=== PATIENT | female | born 1980 | race Caucasian/White ===

== ENCOUNTER 2019-02-27 10:41 | Outpatient (REF) | payer SELFPAY ==
[2019-02-27 21:29] LABS: Anion Gap 10.6 mmol/L (3-11); BUN 10 mg/dL (7-18); CO2 24.4 mmol/L (21.0-32.0); CREATININE 0.75 mg/dL (0.55-1.02); Calculated LDL 199 mg/dL; Chloride 105 mmol/L (98-107); Cholesterol 274 mg/dL (50-200); Glucose 99 mg/dL (70-100); HDL Cholesterol 36 mg/dL (40-60); Potassium 4.2 mmol/L (3.5-5.1); Sodium 140 mmol/L (136-145); TSH (W/Ref FT4) 1.52 uIU/mL (0.358-3.74); Triglyceride 197 mg/dL (30-150)
== END 2019-02-27 11:01 ==
LOC: NCHCN 10:41
PROVIDERS: PCP Nurse Practitioner Family; Visit Provider Nurse Practitioner Family
DX: Z00.00 Encounter for general adult medical examination without abnormal findings (principal); Z13.29 Encounter for screening for other suspected endocrine disorder; Z13.228 Encounter for screening for other metabolic disorders; Z13.220 Encounter for screening for lipoid disorders
CPT/HCPCS: 80048; 80061; 83721; 84443

== ENCOUNTER 2020-10-06 13:34 | Outpatient (REF) | payer SELFPAY ==
--- NOTE | 2020-10-06 11:20 | PAPFT_PTH ---
PATIENT: LORETO BELLO LOC: [facility] U#:[id number] AGE/SX: 39/F ROOM: RE10/06/[address]: Yanna Hinton : 1980 BED: DIS: 10/06/2020 SPEC #: [id number] RECD: 10/06/20 15:35 STATUS: NII REUriel #: [id number] KAROL: 10/06/20 11:[address]: Yanna Hinton DEPT: [facility] Cytology RECD BY: Allie José Tissues: 1 - CX/ENDOCX FOR PAP SMEARS Procedures: PAP THIN PREP/[facility] Screening HPV DNA PROBE Comments: [id number]
== END 2020-10-06 13:35 | disposition home or self-care (01) ==
LOC: NCHCN 13:34
PROVIDERS: PCP Nurse Practitioner Family; Visit Provider Nurse Practitioner Family
DX: Z00.00 Encounter for general adult medical examination without abnormal findings (principal); Z12.4 Encounter for screening for malignant neoplasm of cervix; Z11.51 Encounter for screening for human papillomavirus (HPV)
CPT/HCPCS: 88142; 87624